=== PATIENT | female | born 1990 | race Caucasian/White ===

== ENCOUNTER → 2017-08-23 | Outpatient (CLI) | payer OTHER ==
[~2017-08-23] MED LIST: ACET500; ACYC400; IBUP800 PO; IRON236 MG PO; LABE200 PO; Percocet 5-3251 EACH PO; Verotin-Gr Cap1 EACH PO
== END ==
LOC: LAB SHORT 14:45
DX: Z33.1 Pregnant state, incidental (principal)
CPT/HCPCS: 87081; 87184; 87653

== ENCOUNTER 2017-09-20 07:00 | Inpatient (IN) | payer OTHER, SELFPAY ==
[~2017-09-20] VITALS: Ht 172.7 cm; Wt 171.0 kg
[~2017-09-20 07:00] MED LIST changes: -IBUP800 PO; -LABE200 PO; -Percocet 5-3251 EACH PO
[2017-09-20 07:47] LABS: BASOPHILS ABSOLUTE AUTO 0.02 K/mm3 (0.00-0.23); BASOPHILS PERCENT AUTO 0 % (0-2); EOSINOPHILS ABSOLUTE AUTO 0.13 K/mm3 (0.00-0.68); EOSINOPHILS PERCENT AUTO 1 % (0-6); Hematocrit 36.4 % (33.0-51.0); Hemoglobin 11.7 g/dL (11.5-16.0); IMMATURE GRAN ABSOLUTE AUTO 0.05 K/mm3 (0.00-0.10); IMMATURE GRAN PERCENT AUTO 1 % (0-1); LYMPHOCYTES ABSOLUTE AUTO 1.73 K/mm3 (0.84-5.20); LYMPHOCYTES PERCENT AUTO 19 % (21-46); MONOCYTES ABSOLUTE AUTO 0.57 K/mm3 (0.16-1.47); MONOCYTES PERCENT AUTO 6 % (4-13); Mean Corpuscular HGB 27.5 pg (26.0-34.0); Mean Corpuscular HGB Conc 32.1 g/dL (31.5-36.5); Mean Corpuscular Volume 86 fL (80-100); Mean Platelet Volume 9.1 fL (9.1-12.4); NEUTROPHILS ABSOLUTE AUTO 6.64 K/mm3 (1.96-9.15); NEUTROPHILS PERCENT AUTO 73 % (41-73); Platelet Count 295 K/mm3 (150-400); RDW Standard Deviation 43.7 fL (35.1-46.3); Red Blood Cell Count 4.25 M/mm3 (3.80-5.20); White Blood Cell Count 9.14 K/mm3 (4.00-11.30)
[2017-09-20 08:16] LABS: Alanine Aminotransfer (ALT/SGP 56 U/L (12-78); Albumin, Blood 2.5 g/dL (3.4-5.0); Albumin/Globulin Ratio 0.6 (0.8-1.8); Alk Phos 130 U/L (50-136); Anion Gap 10 mmol/L (6-16); Aspartate Aminotrans (AST/SGOT 49 U/L (12-37); Bilirubin, Total 0.3 mg/dL (0.1-1.0); Blood Urea Nitrogen 12 mg/dL (8-24); Bun/Creatinine Ratio 22.7 (12.0-20.0); CO2, Blood 23 mmol/L (21-32); Calcium, Blood 8.5 mg/dL (8.5-10.1); Chloride, Blood 105 mmol/L (98-108); Creatinine, Blood 0.53 mg/dL (0.40-1.00); Globulin, Blood 4.3 g/dL (2.2-4.0); Glomerular Filtration Rate >60 (60-); Glucose, Blood 83 mg/dL (70-99); Potassium, Blood 3.9 mmol/L (3.5-5.5); Sodium, Blood 138 mmol/L (136-145); Total Protein, Blood 6.8 g/dL (6.4-8.2)
[2017-09-21 06:11] LABS: Hematocrit 34.2 % (33.0-51.0); Mean Corpuscular HGB 27.5 pg (26.0-34.0); Mean Corpuscular HGB Conc 32.2 g/dL (31.5-36.5); Mean Corpuscular Volume 86 fL (80-100); Mean Platelet Volume 9.3 fL (9.1-12.4); Platelet Count 310 K/mm3 (150-400); RDW Coefficient Variation 14.2 % (11.7-14.2); RDW Standard Deviation 44.1 fL (35.1-46.3); White Blood Cell Count 11.71 K/mm3 (4.00-11.30)
[2017-09-22] MEDS ORDERED: IBUP800 PO (12:09)
[2017-09-22] MEDS ORDERED: Percocet 5-3251 EACH PO (12:09)
[2017-09-22] MEDS ORDERED: LABE200 PO (12:09)
== END 2017-09-22 13:44 | disposition home or self-care (01) | DRG 765 ==
LOC: BC 07:00
PROVIDERS: Obstetrics & Gynecology
PROC: 10D00Z1 Extraction of Products of Conception, Low, Open Approach (ICD-10-PCS; principal; 2017-09-20 08:30)
DX: O34.211 Maternal care for low transverse scar from previous cesarean delivery (principal); Z68.43 Body mass index [BMI] 50.0-59.9, adult; E66.01 Morbid (severe) obesity due to excess calories; O16.4 Unspecified maternal hypertension, complicating childbirth; Z37.0 Single live birth; Z3A.39 39 weeks gestation of pregnancy; Z88.0 Allergy status to penicillin; O99.214 Obesity complicating childbirth
CPT/HCPCS: 36415; 80053; 85025; 85027; 86850; 86900; 86901; J0360; J0690; J1885; J2590; J2765; J3010; J7120

== ENCOUNTER → 2020-07-10 | Outpatient (CLI) | payer OTHER, BC ==
[~2020-07-10] MED LIST changes: +IBUP800 PO; +LABE200 PO; +Percocet 5-3251 EACH PO
[2020-07-13 08:11] LABS: HPV 16 Negative (Negative); HPV 18 Negative (Negative); HPV OTHER HR TYPES Negative (Negative)
== END | disposition home or self-care (01) ==
LOC: LAB 11:00 → LAB SHORT 11:00
PROVIDERS: Obstetrics & Gynecology
DX: Z01.419 Encounter for gynecological examination (general) (routine) without abnormal findings (principal)
CPT/HCPCS: 87624; G0123

== ENCOUNTER 2023-06-21 11:07 | Day surgery (SDC) | payer BC ==
[~2023-06-21] VITALS: Ht 172.7 cm; Wt 156.5 kg
[2023-06-21] MEDS ORDERED: LISI5 PO (11:44)
[2023-06-21] MEDS ORDERED: ACET500 (11:45)
[2023-06-21 15:38] VITALS: BP 120/83
--- NOTE | 2023-06-21 15:57 | NUR ---
06/21/23 Nan Lopez 2 MG IV ZOFRAN GIVEN FOR NAUSEA PER ORDERS
== END 2023-06-21 16:18 | disposition home or self-care (01) ==
LOC: ORSCSDS 11:07
PROVIDERS: Podiatrist Foot & Ankle Surgery
PROC: 0SJF4ZZ Inspection of Right Ankle Joint, Percutaneous Endoscopic Approach (ICD-10-PCS; principal; 2023-06-21 12:30)
DX: M93.271 Osteochondritis dissecans, right ankle and joints of right foot (principal); I10 Essential (primary) hypertension; G47.33 Obstructive sleep apnea (adult) (pediatric); E66.9 Obesity, unspecified; Z68.43 Body mass index [BMI] 50.0-59.9, adult; Z79.899 Other long term (current) drug therapy; Z87.891 Personal history of nicotine dependence
CPT/HCPCS: 29898; 29891; 0707T; A9270; C1713; C1762; J0171; J0690; J1100; J2250; J2405; J2704; J2795; J3010